=== PATIENT | male | born 1960 | race Caucasian/White ===

== ENCOUNTER → 2016-11-09 | Outpatient (CLI) | payer MEDICARE, OTHER ==
[~2016-11-09] MED LIST: ASPIR 8181 MG PO; CRESTOR10 MG PO; DIOVAN80 MG PO; ELAVIL 50 MG TA50 MG PO; ESGIC 50-325-41 EACH PO; FENOFIBRATE145 MG PO; GLUCOPHAGE1000 MG PO; HUMALOG100 UNIT/1 SQ; K-TAB ER20 MEQ PO; LANTUS100 UNIT/1 SQ; LASIX20 MG PO; LIBRIUM CAP 2525 MG PO; NEURONTIN 300300 MG PO; NITROSTAT 0.40.4 MG SL; PLAVIX 75 MG TA75 MG PO; PRECOSE 50 MG T50 MG PO; PROVENTIL HFA 61 INH INH; SINGULAIR10 MG PO; TIAZAC360 MG PO
== END ==
LOC: SLEEP 21:30
DX: G47.33 Obstructive sleep apnea (adult) (pediatric) (principal)
CPT/HCPCS: 95810

== ENCOUNTER → 2017-01-05 | Outpatient (CLI) | payer MEDICARE, OTHER | LOC: RAD 11:20 | DX: R05 Cough (principal) | CPT/HCPCS: 71020 ==

== ENCOUNTER 2017-02-20 16:49 | Emergency (ER) | payer MEDICARE, OTHER ==
[2017-02-20 17:50] LABS: RED BLOOD COUNT 5.37 M/UL (4.20-5.50); WHITE BLOOD COUNT 11.3 K/UL (4.5-11.0)
[2017-02-20 18:16] LABS: BUN/CREATININE RATIO 15 (0-10)
== END 2017-02-20 23:00 | disposition home or self-care (01) ==
LOC: ER1 16:49
PROVIDERS: Family Medicine
DX: K62.5 Hemorrhage of anus and rectum (principal); E87.6 Hypokalemia; K57.30 Diverticulosis of large intestine without perforation or abscess without bleeding; I25.2 Old myocardial infarction; E11.9 Type 2 diabetes mellitus without complications; E78.5 Hyperlipidemia, unspecified; I10 Essential (primary) hypertension; Z90.49 Acquired absence of other specified parts of digestive tract; Z88.0 Allergy status to penicillin; Z88.6 Allergy status to analgesic agent; Z88.8 Allergy status to other drugs, medicaments and biological substances; Z79.82 Long term (current) use of aspirin; Z79.84 Long term (current) use of oral hypoglycemic drugs; Z79.4 Long term (current) use of insulin; Z79.02 Long term (current) use of antithrombotics/antiplatelets; Z79.899 Other long term (current) drug therapy
CPT/HCPCS: 36415; 80053; 81001; 82150; 82272; 83605; 83690; 84484; 85025; 85610; 85730; 93005; 99284; J2270; J2405